=== PATIENT | male | born 1945 | race Caucasian/White ===

== ENCOUNTER 2022-05-11 11:08 | Day surgery (SDC) | payer MEDICARE, BC ==
[2022-05-09 12:46] LABS: BASOPHILS # (AUTO) 0.1 X10'3 (0-0.2); BASOPHILS % (AUTO) 0.8 % (0-1); EOSINOPHILS # (AUTO) 0.2 X10'3 (0-0.9); EOSINOPHILS % (AUTO) 2.6 % (0-6); HEMATOCRIT 46.2 % (42.0-52.0); HEMOGLOBIN 15.2 g/dl (14.0-17.9); LYMPHOCYTES # (AUTO) 1.4 X10'3 (1.1-4.8); LYMPHOCYTES % (AUTO) 15.2 % (21-51); MEAN CORPUSCULAR HEMOGLOBIN 31.5 PG (27.0-31.0); MEAN CORPUSCULAR HGB CONC 32.8 g/dL (33.0-36.5); MEAN CORPUSCULAR VOLUME 95.9 FL (78-98); MEAN PLATELET VOLUME 9.4 FL (7.4-10.4); MONOCYTES # (AUTO) 0.9 X10'3 (0-0.9); MONOCYTES % (AUTO) 9.3 % (2-12); NEUTROPHILS # (AUTO) 6.7 X10'3 (1.8-7.7); NEUTROPHILS % (AUTO) 72.1 % (42-75); PLATELET COUNT 148 X10'3 (140-440); RED BLOOD COUNT 4.82 X10'6 (4.70-6.10); RED CELL DISTRIBUTION WIDTH 14.4 % (11.5-14.5); WHITE BLOOD COUNT 9.3 X10'3 (4.5-11.0)
[2022-05-09 12:58] LABS: APTT 29 SECONDS (22-32)
[2022-05-09 13:12] LABS: ALBUMIN 3.7 G/DL (3.4-5.0); ANION GAP 7 (8-16); BLOOD UREA NITROGEN 37 MG/DL (7-18); BUN/CREATININE RATIO 29.4 (5.4-32.0); CALCIUM 8.9 MG/DL (8.5-10.1); CHLORIDE 106 MMOL/L (99-107); CHOL/HDL RATIO 4.6 (0.00-4.99); CHOLESTEROL 203 MG/DL (0-200); CREATININE 1.26 MG/DL (0.60-1.10); GLUCOSE 101 MG/DL (70-104); HDL CHOLESTEROL 44 MG/DL (35-60); LDL CHOLESTEROL 141 MG/DL (50-100); POTASSIUM 4.6 MMOL/L (3.5-5.1); SODIUM 143 MMOL/L (135-145); TOTAL CARBON DIOXIDE 29.7 MMOL/L (24-32); TRIGLYCERIDES 81 MG/DL (20-135); eGFR 56 ML/MIN
[~2022-05-11] VITALS: Ht 190.5 cm; Wt 166.4 kg
[2022-05-11] VITALS (16 sets, daily range): BP systolic 88–147; BP diastolic 44–82
[2022-05-11] MEDS ORDERED: LORazepam 0.5 MG tablet PO PRN (11:35)
[2022-05-11] MEDS ORDERED: normal saline 1,000 ML IV SCH (11:35)
[2022-05-11] MEDS ORDERED: diphenhydrAMINE 25mg capsule PO PRN (11:35)
[2022-05-11] MEDS ORDERED: ALBU90AE2 IH (11:41)
[2022-05-11] MEDS ORDERED: SACU1TAB PO (11:41)
[2022-05-11] MEDS ORDERED: ROC1P IV (11:41)
[2022-05-11] MEDS ORDERED: IPRA3AMP31 IH (11:41)
[2022-05-11] MEDS ORDERED: TRIA10VI INJ (11:41)
[2022-05-11] MEDS ORDERED: iohexol 350MG/ML 100ml bottle IV ONE ×2 (12:56→15:07)
[2022-05-11] MEDS ORDERED: heparin 1,000unit/ml 10ml vial 10 ML ONE ×2 (12:56→13:55)
[2022-05-11] MEDS ORDERED: fentaNYL/PF 50MCG/1 ML 2ML syringe ONE ×4 (12:56→15:21)
[2022-05-11] MEDS ORDERED: verapamil 2.5 mg/ml inj IV ONE ×2 (12:56→15:07)
[2022-05-11] MEDS ORDERED: midazolam 1 mg/ML 2ml injection ONE ×9 (12:56→15:47)
[2022-05-11] MEDS ORDERED: LIDOcaine 1% (10mg/ml) 2ml vial ONE (12:56)
[2022-05-11] MEDS ORDERED: nitroGLYCERIN-Tridil 50MG/D5W 250 ML IV ONE (12:57)
[2022-05-11] MEDS ORDERED: DOPamine 400mg/D5W 250ml 250 ML IV ONE (13:39)
[2022-05-11] MEDS ORDERED: ondansetron/PF 4mg/2ml inj ONE (13:42)
[2022-05-11] MEDS ORDERED: phenylephrine 10mg/ml inj. -priapism dosing ONE (13:55)
[2022-05-11] MEDS ORDERED: LIDOcaine 1% 30ml preserv. free vial ONE (14:09)
[2022-05-11] MEDS ORDERED: HYDROmorphone 1 mg/ml syringe ONE ×2 (15:31→15:47)
[2022-05-11] MEDS ORDERED: aspirin 325mg tablet ONE (16:00)
[2022-05-11] MEDS ORDERED: clopidogrel 300mg tablet ONE (16:00)
[2022-05-11] MEDS ORDERED: proCHLORperazine 10 MG/2 ml inj IV PRN (16:55)
[2022-05-11] MEDS ORDERED: ondansetron/PF 4mg/2ml inj IV PRN (16:55)
--- NOTE | 2022-05-11 18:00 | NUR ---
Pt in and out of bigeminy, stable bp's, heart rate in 50's. Denies feeling any symptoms, states his heart rate is normally 50's. Message left for Dr George in laboratory chemist (scrubbed in) via laboratory chemist Erika Ashby.
== END 2022-05-11 22:15 | disposition home or self-care (01) ==
LOC: SSTAY O 11:08
PROVIDERS: ATTEND Student in an Organized Health Care Education/Training Program
DX: R94.39 Abnormal result of other cardiovascular function study (principal); I25.10 Atherosclerotic heart disease of native coronary artery without angina pectoris; E78.5 Hyperlipidemia, unspecified; I11.0 Hypertensive heart disease with heart failure; I50.20 Unspecified systolic (congestive) heart failure; I42.9 Cardiomyopathy, unspecified; Z79.01 Long term (current) use of anticoagulants; Z79.899 Other long term (current) drug therapy; Z98.890 Other specified postprocedural states
CPT/HCPCS: 36415; 80048; 80061; 83880; 85025; 85610; 85730; 92953; 93005; 93458; 99152; 99153; C1725; C1751; C1756; C1760; C1769; C1874; C1894; C9602; J1170; J1265; J1644; J2250; J2405; J3010; J3490; J7030; Q0163; Q9967; A6258; A6449; C1724; C1761; C9600; J2370